=== PATIENT | female | born 2000 | race Two or more races ===

== ENCOUNTER 2021-12-24 00:26 | Emergency (ER) | payer BC ==
[~2021-12-24] VITALS: Ht 152.4 cm; Wt 59.0 kg
[2021-12-24 04:30] VITALS: BP 122/74
== END 2021-12-24 04:41 | disposition home or self-care (01) ==
LOC: ER 00:26
DX: S90.122A Contusion of left lesser toe(s) without damage to nail, initial encounter (principal); X58.XXXA Exposure to other specified factors, initial encounter; Y93.89 Activity, other specified; Y92.89 Other specified places as the place of occurrence of the external cause; Y99.8 Other external cause status
CPT/HCPCS: 73660

== ENCOUNTER 2024-12-01 20:24 | Emergency (ER) | payer BC ==
--- NOTE | 2024-12-01 21:29 | ED.PDOC ---
General HPI Comments 24 year old female presents to the ED with a chief complaint of bilateral flank pain onset today (12/01/24). Patient states she began experiencing bilateral flank pain as well as headache, nausea/vomiting today. For the past 5 days, patient has been experiencing intermittent fevers. Denies any PMHx as well as dizziness, blurry vision, dysuria, hematuria, hematemesis, abdominal pain. No other symptoms or modifying factors present at this time. Time Seen by MD: 21:15 Reviewed notes: Medications, Allergies Allergies: Coded Allergies: NO KNOWN ALLERGIES (Unverified , 12/24/21) Information Source: Patient Mode of Arrival: Ambulatory Severity: Moderate Timing: Hours Duration: Since onset Prehospital treatment: None Onset: Spontaneous Symptoms: Other History of: None Location: (R) Flank, (L)Flank Modifying factors: None associated signs and symptoms: Fever, Nausea, Vomiting, Flank Pain Physical Exam PHYSICAL EXAM: General: Awake, alert and oriented. No acute distress. Skin: Skin in warm, dry and intact without rashes or lesions. HEENT: The head is normocephalic and atraumatic. Conjunctivae are clear without exudates or hemorrhage. Sclera is non-icteric. Neck: Normal range of motion. No JVD. Cardiac: Regular rate Respiratory: No signs of respiratory distress. No Stridor. Extremities: Upper and lower extremities are atraumatic in appearance without deformity. Neurological: The patient is awake, alert and oriented to person, place, and time with normal speech. Speech is clear. There is no facial asymmetry. Psychiatric: Appropriate mood and affect. Good judgement and insight. Review of Systems: REVIEW OF SYSTEMS: General: No fever, no chills, or fatigue HEENT: No sore throat, no earache, no congestion, no neck pain. Cardiac: No chest pain. No palpitations. Lungs: No shortness of breath, no cough. GI: No nausea, no vomiting, no diarrhea, no constipation, no abdominal pain : No dysuria, frequency, or urgency. No hematuria. Musculoskeletal: No joint pain , no joint swelling, no extremity edema. Skin: No rash, no itching. Neuro: No headache, no dizziness, no weakness Past Medical History PAST MEDICAL HISTORY: Denies Surgical History: Denies all surgeries SEAFOOD PACKER History: No Pertinent SEAFOOD PACKER History Family History Family History: Reviewed,noncontributory to illness, No family hx of Cancer, No family hx of DM, No family hx of Heart shawn, No family hx of HTN, No family hx ofKidney shawn, No family hx of Liver shawn, No family hx of Lung shawn, No family hx of Stroke Social History Smoker: Non-Smoker Alcohol: Denies ETOH Use Drugs: Denies Drug Use Lives In: Home Was a procedure done? Was a procedure done?: No Differential Diagnosis Kidney stone (Female): Other (Differential diagnoses considered include but are not limited to pyelonephritis, UTI, nephrolithiasis, PUD, musculoskeletal pain, AAA, other) Time of 1ST Reevaluation: 21:45 Reevaluation 1ST: Unchanged Patient Education/Counseling: Need For Follow Up Family Education/Counseling: No Family Present SEPSIS Sepsis Screen Physician Orders Urinalysis (12/01/24 21:15) Test, Urine (12/01/24 21:15) Electrocardigram (12/02/24 00:36) Electrocardigram (12/02/24 01:36) Departure 1 Departure Time of Disposition: 01:00 Impression: Primary Impression: Bilateral flank pain Additional Impression: Eloped from emergency department Disposition: 07 LEFT AWOL/ELOPED Condition: Other Comments Patient was seen and evaluated, discussed plan of care with the patient. She eloped from the ED prior to completing workup. Critical Care Note Critical Care Time?: No Stability Stability form required: No I personally scribed for DEBBIE ALANIZ MD ([email or web address]) on 12/01/24 at 21:29. Electronically submitted by Deonna Morgan ([email or web address]). DEBBIE ALANIZ MD Dec 01, 2024 21:29
[2024-12-01] MEDS ORDERED: ACETAMINOPHEN 325 MG TAB PO ONE (22:00)
[2024-12-01] MEDS ORDERED: KETOROLAC TROMETH 30 MG/ML 1ML VIAL IM ONE (22:00)
== END 2024-12-01 22:57 | disposition home or self-care (01) ==
LOC: ER 20:24
DX: R10.9 Unspecified abdominal pain (principal); R51.9 Headache, unspecified; R11.2 Nausea with vomiting, unspecified